=== PATIENT | male | born 1960 | race Caucasian/White ===

== ENCOUNTER 2020-08-16 21:42 | Emergency (ER) | payer SELFPAY ==
[2020-08-16] MEDS: Morphine 2 MG/ML SYRINGE IVPUSH STA (21:59)
[2020-08-16] MEDS: Ketorolac 30 MG/ML SDV IVPUSH STA (21:59)
[2020-08-16] MEDS: Sodium Chloride 0.9% 10 ML Syringe FLUSH PRN (22:00)
--- NOTE | 2020-08-16 23:00 | EDM.PDOC ---
ED HPI GENERAL MEDICAL PROBLEM - General Chief Complaint: Lower Extremity Injury/Pain Stated Complaint: INJURED ANKLE Time Seen by Provider: 08/16/20 22:00 Source of Information: Reports: Patient History Limitations: Reports: No Limitations - History of Present Illness INITIAL COMMENTS - FREE TEXT/NARRATIVE: Patient is a 61 YO WM who presented to the ED because of a left ankle injury and head injury. He was drinking tonight and got out of his truck, lost his balance and twisted his left ankle. He then fell on the ground and hit the right side of his pres[employer]beterian on the ground. He has an abrasion on the right ear. There is no LOC after the fall, denies having any headache,nausea/vomiting. He is otherwise healthy and is not on any medication. left ankle Pain Score (Numeric/FACES): 10 - Related Data Allergies Allergy/AdvReac Type Severity Reaction Status Date / Time No Known Allergies Allergy Verified 03/29/13 12:54 Home Meds: Home Meds NK [No Known Home Meds] 03/29/13 [History] Review of Systems - Review of Systems Review Of Systems: See Below Constitutional: Reports: No Symptoms Eyes: Reports: No Symptoms Ears: Reports: No Symptoms Nose: Reports: No Symptoms Mouth/Throat: Reports: No Symptoms Respiratory: Reports: No Symptoms Cardiovascular: Reports: No Symptoms GI/Abdominal: Reports: No Symptoms Genitourinary: Reports: No Symptoms Musculoskeletal: Reports: Joint Pain, Joint Swelling Neurological: Reports: No Symptoms Psychiatric: Reports: No Symptoms ED EXAM, GENERAL - Physical Exam Exam: See Below Exam Limited By: No Limitations General Appearance: Alert, No Apparent Distress Ears: Normal External Exam, Normal Canal Nose: Normal Inspection, Normal Mucosa, No Blood Throat/Mouth: Normal Inspection, Normal Lips, Normal Teeth Head: Normocephalic Neck: Normal Inspection, Supple, Non-Tender, Full Range of Motion Respiratory/Chest: No Respiratory Distress, Lungs Clear, Normal Breath Sounds, No Accessory Muscle Use, Chest Non-Tender Cardiovascular: Normal Peripheral Pulses, Regular Rate, Rhythm, No Edema, No Gallop, No JVD, No Murmur, No Rub GI/Abdominal: Normal Bowel Sounds, Soft, Non-Tender, No Organomegaly Back Exam: Normal Inspection, Full Range of Motion Extremities: Other (0) Neurological: Alert, Oriented, CN II-XII Intact, Normal Cognition Course - Vital Signs Text/Narrative:: Labs-not drawn, patient left before lab came Head and C-spine CT -pending Xray left ankle-see result Case discussed with Dr Juan Sosa Morphine 2 mg IV x1 Toradol 30 mg IV x1 Code Status: DNR/DNI Last Recorded V/S: Last Vital Signs Temp 37.4 C 08/16/20 23:20 Pulse 82 08/16/20 23:20 Resp 18 08/16/20 23:20 BP 133/85 08/16/20 23:20 Pulse Ox 96 08/16/20 23:20 - Orders/Labs/Meds Orders: Active Orders 24 hr Category Date Time Status Ankle Min 3V Lt [CR] Stat Exams 08/16/20 21:50 Taken C-Spine [Cervical Spine wo Cont] [CT] Stat Exams 08/16/20 23:01 Taken Head wo Cont [CT] Stat Exams 08/16/20 22:40 Taken Saline Lock Insert [OM.PC] Routine Oth 08/16/20 21:50 Ordered Meds: Medications Discontinued Medications Generic Name Dose Route Start Last Admin Trade Name Guanacoq PRN Reason Stop Dose Admin Ketorolac Tromethamine 30 mg 08/16/20 21:50 08/16/20 21:59 Ketorolac 30 Mg/Ml Sdv IVPUSH 08/16/20 21:51 30 mg NOW STA Administration Morphine Sulfate 2 mg 08/16/20 21:50 08/16/20 21:59 Morphine 2 Mg/Ml Syringe IVPUSH 08/16/20 21:51 2 mg NOW STA Administration Sodium Chloride 10 ml 08/16/20 21:50 08/16/20 22:00 Sodium Chloride 0.9% 10 Ml Syringe FLUSH 10 ml ASDIRECTED PRN Administration Keep Vein Open Departure - Departure Time of Disposition: 23:40 Disposition: Home, Self-Care 01 Condition: Good Clinical Impression: Closed fibular fracture, Ankle dislocation - Discharge Information Instructions: Ankle Dislocation, [id number], Ankle Fracture, [id number] Referrals: PCP,None [Primary Care Provider] - Forms: ED Department Discharge Sepsis Event Note (ED) - Focused Exam Vital Signs: Vital Signs Temp Pulse Resp BP Pulse Ox 08/16/20 23:20 37.4 C 82 18 133/85 96 - My Orders Last 24 Hours: My Active Orders 08/16/20 21:50 Ankle Min 3V Lt [CR] Stat Saline Lock Insert [OM.PC] Routine 08/16/20 22:40 Head wo Cont [CT] Stat 08/16/20 23:01 C-Spine [Cervical Spine wo Cont] [CT] Stat - Assessment/Plan Last 24 Hours: My Active Orders 08/16/20 21:50 Ankle Min 3V Lt [CR] Stat Saline Lock Insert [OM.PC] Routine 08/16/20 22:40 Head wo Cont [CT] Stat 08/16/20 23:01 C-Spine [Cervical Spine wo Cont] [CT] Stat
--- NOTE | 2020-08-17 11:16 | CR ---
INDICATION: Left ankle injury - rolled ankle. LEFT ANKLE: Three views of the left ankle were obtained 08/17/20 and revealed fracture-dislocation with the fracture obliquely through the distal fibula at the lateral malleolus and distal-most shaft. Medial angulation is noted at the fracture site with lateral offset of the distal fracture fragment of approximately 6 mm. The talus is laterally offset with respect to the tibia by approximately 18 mm and is rotated - everted. The talus also appears to be anteriorly offset with respect to the tibia. No definite medial malleolar fracture site was seen. A tiny bony density lateral to the talus may represent an ununited accessory ossification center, or previous chip fracture fragment that did not unite. IMPRESSION: Fracture-dislocation at the ankle. Fairly severe deformity is present. MTDD
== END 2020-08-16 23:42 | disposition home or self-care (01) ==
LOC: FB.ED 21:42
DX: S82.62XA Displaced fracture of lateral malleolus of left fibula, initial encounter for closed fracture (principal); X50.1XXA Overexertion from prolonged static or awkward postures, initial encounter
CPT/HCPCS: 70450; 72125; 73610; 96374; 96375; 99285; J1885; J2270